=== PATIENT | male | born 1960 | race Two or more races ===

== ENCOUNTER 2023-04-22 14:57 | Inpatient (IN) | payer OTHER ==
[~2023-04-22] VITALS: Ht 180.3 cm; Wt 87.2 kg
[2023-04-22 16:41] LABS: Basophils # (auto) 0 10 ^3/uL (0-0.2); Basophils % (auto) 0.5 % (0.0-2.0); Eosinophils # (auto) 0.1 10 ^3/uL (0-0.8); Eosinophils % (auto) 1.4 % (0.0-7.0); Hematocrit 40.7 % (41.0-53.0); Hemoglobin 13.3 g/dL (13.5-17.5); Lymphocytes # (auto) 2.8 10 ^3/uL (0.4-5.4); Lymphocytes % (auto) 29.2 % (10.0-50.0); Mean Corpuscular Hemoglobin 28.7 pg (28.0-32.0); Mean Corpuscular Hgb Conc. 32.6 g/dL (32.0-36.0); Monocytes # (auto) 0.6 10 ^3/uL (0-1.3); Monocytes % (auto) 6.2 % (0.0-12.0); Neutrophils % (auto) 62.7 % (37.0-80.0); Nucleated Red Blood Cells % 0.1 %; Red Blood Cells 4.62 10^6/uL (4.5-5.90); Red Cell Distribution Width 14.5 % (11.8-14.3); White Blood Cell 9.6 10^3/uL (4.4-10.8)
[2023-04-22 17:02] LABS: Albumin 4.1 g/dL (3.2-4.8); Alkaline Phosphatase 93 U/L (46-116); Anion Gap 8 (5-15); Aspartate Aminotransferase 10 U/L (13-40); Bilirubin, Total 0.7 mg/dL (0.2-1.0); Blood Urea Nitrogen 10 mg/dL (9-23); Calcium 9.1 mg/dL (8.7-10.4); Carbon Dioxide 24 mmol/L (20-30); Chloride 109 mmol/L (98-107); Glucose 98 mg/dL (74-106); Lipase 34 U/L (12-53); Sodium 141 mmol/L (136-145)
[2023-04-22 17:22] LABS: Alanine Aminotransferase 9 U/L (7-40)
[2023-04-22 17:24] LABS: Potassium 2.7 mmol/L (3.5-5.1)
[2023-04-22] MEDS ORDERED: POTASSIUM CHL 20MEQ/100ML 100 ML IV ONE (18:15)
[2023-04-22] MEDS ORDERED: POTASSIUM CHL 20 Meq TABLET PO ONE (18:15)
[2023-04-22 18:52] VITALS: PULSE 82; RESP 21; O2SAT 92
[2023-04-22 20:00] VITALS: PULSE 83; RESP 16; O2SAT 98
[2023-04-22] MEDS ORDERED: SODIUM CHLORIDE 0.9% 1,000 ML IV ONE (23:45)
[2023-04-23] MEDS ORDERED: ONDANSETRON HCL 4 MG/2 ML VIAL IV PRN (01:00)
[2023-04-23] MEDS ORDERED: MORPHINE SULFATE INJ 2 MG/ml SYRG IV PRN (01:00)
[2023-04-23 07:50] VITALS: PULSE 85; RESP 17; O2SAT 96
[2023-04-23 13:18] LABS: Basophils # (auto) 0.1 10 ^3/uL (0-0.2); Basophils % (auto) 1.1 % (0.0-2.0); Eosinophils # (auto) 0.1 10 ^3/uL (0-0.8); Eosinophils % (auto) 1.2 % (0.0-7.0); Hematocrit 42.2 % (41.0-53.0); Hemoglobin 13.8 g/dL (13.5-17.5); Lymphocytes % (auto) 18.8 % (10.0-50.0); Mean Corpuscular Hemoglobin 28.7 pg (28.0-32.0); Mean Corpuscular Hgb Conc. 32.7 g/dL (32.0-36.0); Mean Corpuscular Volume 87.6 fL (80.0-100.0); Monocytes # (auto) 0.6 10 ^3/uL (0-1.3); Monocytes % (auto) 6.1 % (0.0-12.0); Neutrophils # (auto) 7.7 10 ^3/uL (1.6-8.6); Neutrophils % (auto) 72.8 % (37.0-80.0); Red Blood Cells 4.82 10^6/uL (4.5-5.90); Red Cell Distribution Width 14.5 % (11.8-14.3); White Blood Cell 10.5 10^3/uL (4.4-10.8)
[2023-04-23 13:27] LABS: Alanine Aminotransferase 10 U/L (7-40); Alkaline Phosphatase 94 U/L (46-116); Anion Gap 11 (5-15); Blood Urea Nitrogen 8 mg/dL (9-23); Calcium 9.3 mg/dL (8.7-10.4); Carbon Dioxide 21 mmol/L (20-30); Chloride 109 mmol/L (98-107); Glucose 103 mg/dL (74-106); Lipase 35 U/L (12-53); Magnesium 1.3 mg/dL (1.6-2.6); Sodium 141 mmol/L (136-145)
[2023-04-23 13:29] LABS: Albumin 4.1 g/dL (3.2-4.8); Aspartate Aminotransferase 10 U/L (13-40); Bilirubin, Total 0.7 mg/dL (0.2-1.0)
[2023-04-23 13:41] LABS: INR 1.13 (0.9-1.15); Partial Thromboplastin Time 34.2 SEC (24.5-34.5); Prothrombin Time 11.8 sec (9.3-11.8)
[2023-04-23 13:48] LABS: Potassium 2.8 mmol/L (3.5-5.1)
[2023-04-23] MEDS: POTASSIUM CHL 20MEQ/100ML 100 ML IV SCH ×2 (16:52→16:53)
[2023-04-23 19:30] VITALS: PULSE 85; RESP 21; O2SAT 98
[2023-04-23 21:11] VITALS: PULSE 79; RESP 18; TEMP 37.3; O2SAT 95
[2023-04-23] MEDS ORDERED: ASPI81CH59 PO (21:39)
[2023-04-23] MEDS ORDERED: DRON2.5C14 PO (21:49)
[2023-04-23] MEDS ORDERED: ASCO500T11 PO (21:49)
[2023-04-23] MEDS ORDERED: METF-370 PO (21:49)
[2023-04-23] MEDS ORDERED: CLOP75TA70 PO (21:49)
[2023-04-23] MEDS ORDERED: LEVE500T40 PO (21:49)
[2023-04-23] MEDS ORDERED: ATOR20TA50 PO (21:49)
[2023-04-23] MEDS ORDERED: SUCR1TAB22 OR (21:49)
[2023-04-23] MEDS ORDERED: PANT40TA2 PO (21:49)
[2023-04-23] MEDS ORDERED: MIRT-94 OR (21:49)
[2023-04-23] MEDS ORDERED: LACTCAP20 OR (21:49)
[2023-04-23] MEDS ORDERED: MULT-1018 OR (21:49)
[2023-04-23] MEDS: SODIUM CHLORIDE 0.9% 1,000 ML IV SCH (22:30)
[2023-04-24 05:00] VITALS: BP 144/80; PULSE 74; RESP 17; TEMP 97.9; O2SAT 98
[2023-04-24 06:32] LABS: Alanine Aminotransferase 11 U/L (7-40); Albumin 3.9 g/dL (3.2-4.8); Alkaline Phosphatase 89 U/L (46-116); Anion Gap 11 (5-15); Aspartate Aminotransferase 12 U/L (13-40); BUN/Creatinine Ratio 20.4 (10.0-20.0); Basophils # (auto) 0 10 ^3/uL (0-0.2); Basophils % (auto) 0.4 % (0.0-2.0); Bilirubin, Total 0.8 mg/dL (0.2-1.0); Blood Urea Nitrogen 10 mg/dL (9-23); Calcium 9.1 mg/dL (8.7-10.4); Carbon Dioxide 22 mmol/L (20-30); Chloride 109 mmol/L (98-107); Eosinophils # (auto) 0.2 10 ^3/uL (0-0.8); Eosinophils % (auto) 2.1 % (0.0-7.0); Glucose 98 mg/dL (74-106); Hematocrit 40.6 % (41.0-53.0); Hemoglobin 13.8 g/dL (13.5-17.5); Lymphocytes # (auto) 1.8 10 ^3/uL (0.4-5.4); Lymphocytes % (auto) 20.7 % (10.0-50.0); Magnesium 1.3 mg/dL (1.6-2.6); Mean Corpuscular Hemoglobin 29.7 pg (28.0-32.0); Mean Corpuscular Hgb Conc. 33.9 g/dL (32.0-36.0); Mean Corpuscular Volume 87.7 fL (80.0-100.0); Monocytes # (auto) 0.6 10 ^3/uL (0-1.3); Monocytes % (auto) 6.5 % (0.0-12.0); Neutrophils # (auto) 6.1 10 ^3/uL (1.6-8.6); Neutrophils % (auto) 70.3 % (37.0-80.0); Red Blood Cells 4.63 10^6/uL (4.5-5.90); Sodium 142 mmol/L (136-145); Total Protein 6.6 g/dL (5.7-8.2); White Blood Cell 8.6 10^3/uL (4.4-10.8)
[2023-04-24 06:35] LABS: Potassium 2.8 mmol/L (3.5-5.1)
[2023-04-24] MEDS: POTASSIUM CHL 20MEQ/100ML 100 ML IV SCH ×4 (07:45→18:06)
[2023-04-24 09:00] VITALS: BP 154/90; PULSE 77; RESP 17; TEMP 97.1; O2SAT 97
[2023-04-24] MEDS: SODIUM CHLORIDE 0.9% 1,000 ML IV SCH ×2 (09:50→23:10)
[2023-04-24] MEDS: PANTOPRAZOLE 40 MG/10 ML VIAL INJ IV SCH (10:00)
[2023-04-24] MEDS: MAGNESIUM SULFATE 1GM/100ML 100 ML IV SCH ×2 (11:49→13:15)
[2023-04-24 13:00] VITALS: BP 153/79; PULSE 53; RESP 20; TEMP 98.4; O2SAT 97
[2023-04-24 17:00] VITALS: BP 168/82; PULSE 75; RESP 22; TEMP 98.2; O2SAT 98
[2023-04-24 20:00] VITALS: PULSE 80; RESP 18
[2023-04-24] MEDS ORDERED: DEXTROSE (50%) 50ML SYRG IV PRN (20:00)
[2023-04-24] MEDS: ACCU-CHEK COMFORT CURVE STRIP VI SCH (22:00)
[2023-04-24] MEDS: InsuLIN REG 1unit/0.01ml Soln (100units/ml) SC SCH (22:00)
[2023-04-24 23:52] VITALS: BP 155/81; PULSE 74; RESP 18; TEMP 97.8; O2SAT 95
[2023-04-25] VITALS (7 sets, daily range): BP systolic 141–159; BP diastolic 70–92; PULSE 64–93; RESP 14–18; TEMP 97.5–98.5; O2SAT 92–97
[2023-04-25] MEDS: ACCU-CHEK COMFORT CURVE STRIP VI SCH ×4 (06:22→21:11)
[2023-04-25] MEDS: InsuLIN REG 1unit/0.01ml Soln (100units/ml) SC SCH ×4 (06:22→21:11)
[2023-04-25] MEDS: PANTOPRAZOLE 40 MG/10 ML VIAL INJ IV SCH (09:56)
[2023-04-25 12:23] LABS: Basophils # (auto) 0 10 ^3/uL (0-0.2); Basophils % (auto) 0.3 % (0.0-2.0); Eosinophils # (auto) 0.2 10 ^3/uL (0-0.8); Eosinophils % (auto) 2.5 % (0.0-7.0); Hematocrit 38.4 % (41.0-53.0); Hemoglobin 12.6 g/dL (13.5-17.5); Lymphocytes % (auto) 25.8 % (10.0-50.0); Mean Corpuscular Hemoglobin 28.9 pg (28.0-32.0); Mean Corpuscular Hgb Conc. 32.8 g/dL (32.0-36.0); Mean Corpuscular Volume 88.1 fL (80.0-100.0); Monocytes # (auto) 0.5 10 ^3/uL (0-1.3); Monocytes % (auto) 6.3 % (0.0-12.0); Neutrophils # (auto) 5.1 10 ^3/uL (1.6-8.6); Neutrophils % (auto) 65.1 % (37.0-80.0); Nucleated Red Blood Cells % 0.1 %; Red Blood Cells 4.35 10^6/uL (4.5-5.90); Red Cell Distribution Width 14.2 % (11.8-14.3); White Blood Cell 7.9 10^3/uL (4.4-10.8)
[2023-04-25] MEDS: SODIUM CHLORIDE 0.9% 1,000 ML IV SCH (12:30)
[2023-04-25 12:34] LABS: Chloride 108 mmol/L (98-107); Potassium 3.1 mmol/L (3.5-5.1); Sodium 141 mmol/L (136-145)
[2023-04-25 12:35] LABS: Anion Gap 12 (5-15); Calcium 8.8 mg/dL (8.7-10.4); Carbon Dioxide 21 mmol/L (20-30)
[2023-04-25 12:40] LABS: BUN/Creatinine Ratio 12.5 (10.0-20.0); Blood Urea Nitrogen 6 mg/dL (9-23); Glucose 122 mg/dL (74-106)
[2023-04-25 12:41] LABS: Magnesium 1.5 mg/dL (1.6-2.6)
[2023-04-25] MEDS ORDERED: POTASSIUM CHL 20MEQ/100ML 100 ML IV ONE (15:45)
[2023-04-25] MEDS ORDERED: MAGNESIUM SULFATE 1GM/100ML 100 ML IV ONE (15:45)
[2023-04-25] MEDS ORDERED: GOLYTELY 4L KIT PO ONE (19:15)
[2023-04-25] MEDS: POTASSIUM CHL 20MEQ/100ML 100 ML IV SCH (20:01)
[2023-04-26] VITALS (7 sets, daily range): BP systolic 142–161; BP diastolic 88–92; PULSE 69–92; RESP 16–18; TEMP 97.9–98.3; O2SAT 92–95
[2023-04-26] MEDS: POTASSIUM CHL 20MEQ/100ML 100 ML IV SCH ×3 (00:53→14:48)
[2023-04-26] MEDS: SODIUM CHLORIDE 0.9% 1,000 ML IV SCH ×2 (01:50→17:00)
[2023-04-26] MEDS ORDERED: BISACODYL 5 MG EC TAB PO ONE (06:00)
[2023-04-26 06:18] LABS: Basophils # (auto) 0 10 ^3/uL (0-0.2); Basophils % (auto) 0.6 % (0.0-2.0); Eosinophils # (auto) 0.2 10 ^3/uL (0-0.8); Eosinophils % (auto) 2.6 % (0.0-7.0); Hemoglobin 12.8 g/dL (13.5-17.5); Lymphocytes # (auto) 1.6 10 ^3/uL (0.4-5.4); Lymphocytes % (auto) 24.3 % (10.0-50.0); Mean Corpuscular Hemoglobin 29.1 pg (28.0-32.0); Mean Corpuscular Hgb Conc. 33.7 g/dL (32.0-36.0); Mean Corpuscular Volume 86.3 fL (80.0-100.0); Monocytes # (auto) 0.4 10 ^3/uL (0-1.3); Monocytes % (auto) 6.2 % (0.0-12.0); Neutrophils # (auto) 4.4 10 ^3/uL (1.6-8.6); Neutrophils % (auto) 66.3 % (37.0-80.0); Red Cell Distribution Width 14.4 % (11.8-14.3); White Blood Cell 6.7 10^3/uL (4.4-10.8)
[2023-04-26] MEDS: ACCU-CHEK COMFORT CURVE STRIP VI SCH ×4 (06:55→22:00)
[2023-04-26] MEDS: InsuLIN REG 1unit/0.01ml Soln (100units/ml) SC SCH ×4 (06:55→22:00)
[2023-04-26 07:02] LABS: INR 1.15 (0.9-1.15)
[2023-04-26 07:21] LABS: Alanine Aminotransferase 15 U/L (7-40); Alkaline Phosphatase 84 U/L (46-116); Anion Gap 11 (5-15); Aspartate Aminotransferase 18 U/L (13-40); Carbon Dioxide 22 mmol/L (20-30); Chloride 108 mmol/L (98-107); Glucose 110 mg/dL (74-106); Potassium 3.2 mmol/L (3.5-5.1); Sodium 141 mmol/L (136-145)
[2023-04-26 07:22] LABS: Albumin 3.7 g/dL (3.2-4.8); Bilirubin, Total 0.7 mg/dL (0.2-1.0); Total Protein 6.3 g/dL (5.7-8.2)
[2023-04-26 07:25] LABS: BUN/Creatinine Ratio 11.6 (10.0-20.0); Blood Urea Nitrogen < 5 mg/dL (9-23)
[2023-04-26] MEDS: hydrALAZINE HCL 20 MG/ML VL IV PRN ×2 (10:11→17:06)
[2023-04-26] MEDS: PANTOPRAZOLE 40 MG/10 ML VIAL INJ IV SCH (10:11)
[2023-04-26] MEDS: MAGNESIUM SULFATE 1GM/100ML 100 ML IV SCH ×2 (19:51→23:00)
[2023-04-27] MEDS: SODIUM CHLORIDE 0.9% 1,000 ML IV SCH (04:49)
[2023-04-27 05:00] VITALS: BP 151/90; PULSE 76; RESP 18; TEMP 97.9; O2SAT 93
[2023-04-27] MEDS: InsuLIN REG 1unit/0.01ml Soln (100units/ml) SC SCH (05:56)
[2023-04-27] MEDS: ACCU-CHEK COMFORT CURVE STRIP VI SCH (05:56)
[2023-04-27 08:00] VITALS: PULSE 71; PULSE 83; RESP 16; O2SAT 96
[2023-04-27 10:07] VITALS: BP 138/90; PULSE 83; RESP 16; TEMP 98.1; O2SAT 100
[2023-04-27] MEDS ORDERED: POLYETHYLENE GLYCOL 17 GM PWDR PO ONE (10:30)
[2023-04-27] MEDS: PANTOPRAZOLE 40 MG/10 ML VIAL INJ IV SCH (10:57)
[2023-04-27 14:22] VITALS: BP 161/99; PULSE 77; RESP 16; TEMP 98.2; O2SAT 96
[2023-04-27 14:41] LABS: Basophils # (auto) 0 10 ^3/uL (0-0.2); Basophils % (auto) 0.5 % (0.0-2.0); Eosinophils # (auto) 0.2 10 ^3/uL (0-0.8); Eosinophils % (auto) 3.4 % (0.0-7.0); Hematocrit 37.3 % (41.0-53.0); Hemoglobin 12.4 g/dL (13.5-17.5); Lymphocytes # (auto) 2.1 10 ^3/uL (0.4-5.4); Lymphocytes % (auto) 30.2 % (10.0-50.0); Mean Corpuscular Hemoglobin 28.7 pg (28.0-32.0); Mean Corpuscular Hgb Conc. 33.3 g/dL (32.0-36.0); Mean Corpuscular Volume 86.3 fL (80.0-100.0); Monocytes # (auto) 0.6 10 ^3/uL (0-1.3); Monocytes % (auto) 8.3 % (0.0-12.0); Neutrophils # (auto) 3.9 10 ^3/uL (1.6-8.6); Neutrophils % (auto) 57.6 % (37.0-80.0); Red Blood Cells 4.33 10^6/uL (4.5-5.90); Red Cell Distribution Width 14.4 % (11.8-14.3); White Blood Cell 6.8 10^3/uL (4.4-10.8)
[2023-04-27 14:54] LABS: Anion Gap 9 (5-15); Calcium 8.6 mg/dL (8.7-10.4); Carbon Dioxide 22 mmol/L (20-30); Chloride 109 mmol/L (98-107); Sodium 140 mmol/L (136-145)
[2023-04-27 14:57] LABS: Glucose 203 mg/dL (74-106)
[2023-04-27 14:58] LABS: Magnesium 1.7 mg/dL (1.6-2.6)
[2023-04-27 15:03] LABS: BUN/Creatinine Ratio 9.8 (10.0-20.0); Blood Urea Nitrogen < 5 mg/dL (9-23)
[2023-04-27] MEDS ORDERED: MAGNESIUM SULFATE 1GM/100ML 100 ML IV ONE (16:00)
[2023-04-27] MEDS ORDERED: LISINOPRIL 5 MG TAB PO ONE (16:15)
[2023-04-27] MEDS: POTASSIUM CHL 20MEQ/100ML 100 ML IV SCH ×2 (16:47→20:33)
[2023-04-27] MEDS: hydrALAZINE HCL 20 MG/ML VL IV PRN (16:47)
[2023-04-27 19:30] VITALS: PULSE 69
[2023-04-27 23:02] VITALS: BP 132/71; PULSE 74; RESP 18; TEMP 98.8; O2SAT 93
[2023-04-28] VITALS (7 sets, daily range): BP systolic 144–149; BP diastolic 67–80; PULSE 49–77; RESP 16–20; TEMP 97.4–98.3; O2SAT 93–98
[2023-04-28] MEDS ORDERED: POLYETHYLENE GLYCOL 17 GM PWDR PO ONE (05:30)
[2023-04-28] MEDS ORDERED: LIDOCAINE VISCOUS 2% 15ML UD ONE (09:48)
[2023-04-28 09:58] LABS: Basophils # (auto) 0 10 ^3/uL (0-0.2); Basophils % (auto) 0.7 % (0.0-2.0); Eosinophils # (auto) 0.2 10 ^3/uL (0-0.8); Eosinophils % (auto) 3.7 % (0.0-7.0); Hemoglobin 12.7 g/dL (13.5-17.5); Lymphocytes # (auto) 2.1 10 ^3/uL (0.4-5.4); Lymphocytes % (auto) 31.3 % (10.0-50.0); Mean Corpuscular Hgb Conc. 33.3 g/dL (32.0-36.0); Mean Corpuscular Volume 86.9 fL (80.0-100.0); Monocytes # (auto) 0.6 10 ^3/uL (0-1.3); Monocytes % (auto) 9.2 % (0.0-12.0); Neutrophils # (auto) 3.7 10 ^3/uL (1.6-8.6); Neutrophils % (auto) 55.1 % (37.0-80.0); Nucleated Red Blood Cells % 0.1 %; Red Blood Cells 4.37 10^6/uL (4.5-5.90); Red Cell Distribution Width 14.6 % (11.8-14.3); White Blood Cell 6.7 10^3/uL (4.4-10.8)
[2023-04-28] MEDS: PANTOPRAZOLE 40 MG/10 ML VIAL INJ IV SCH (10:00)
[2023-04-28] MEDS: LISINOPRIL 5 MG TAB PO SCH (10:00)
[2023-04-28 10:11] LABS: Anion Gap 8 (5-15); Carbon Dioxide 23 mmol/L (20-30); Chloride 111 mmol/L (98-107); Potassium 3.1 mmol/L (3.5-5.1); Sodium 142 mmol/L (136-145)
[2023-04-28 10:12] LABS: Calcium 8.9 mg/dL (8.5-10.1)
[2023-04-28 10:17] LABS: Glucose 117 mg/dL (74-106)
[2023-04-28 10:26] LABS: BUN/Creatinine Ratio 12.2 (10.0-20.0); Blood Urea Nitrogen < 5 mg/dL (9-23)
[2023-04-28 10:37] LABS: Magnesium 1.6 mg/dL (1.6-2.6)
[2023-04-28] MEDS: fentaNYL CITRATE 100 MCG/2 ML VL ONE ×3 (11:25→11:40)
[2023-04-28] MEDS: MIDAZOLAM HCL 2MG/2ML 2ml VIAL (1mg/ml) ONE ×3 (11:25→11:41)
[2023-04-28] MEDS: diphenhdrAMINE HCL 50 MG/1 ML VL ONE ×2 (11:25→11:37)
[2023-04-28] MEDS: MAGNESIUM SULFATE 1GM/100ML 100 ML IV SCH ×2 (13:28→16:21)
[2023-04-28] MEDS: POTASSIUM CHL 20MEQ/100ML 100 ML IV SCH ×2 (13:30→16:20)
[2023-04-28] MEDS: DOCUSATE SOD 100 MG CAP PO SCH (22:15)
[2023-04-29] VITALS (7 sets, daily range): BP systolic 140–155; BP diastolic 71–82; PULSE 67–73; RESP 14–18; TEMP 97.3–98.6; O2SAT 93–96
[2023-04-29 06:55] LABS: Anion Gap 7 (5-15); Carbon Dioxide 24 mmol/L (20-30); Chloride 109 mmol/L (98-107); Potassium 3.9 mmol/L (3.5-5.1); Sodium 140 mmol/L (136-145)
[2023-04-29 07:01] LABS: Glucose 130 mg/dL (74-106)
[2023-04-29 07:02] LABS: Magnesium 1.7 mg/dL (1.6-2.6)
[2023-04-29 07:04] LABS: BUN/Creatinine Ratio 10.4 (10.0-20.0); Blood Urea Nitrogen < 5 mg/dL (9-23)
[2023-04-29] MEDS ORDERED: PANTOPRAZOLE 40 MG TAB PO SCH (10:00)
[2023-04-29] MEDS: DOCUSATE SOD 100 MG CAP PO SCH ×2 (10:13→22:00)
[2023-04-29] MEDS: LISINOPRIL 5 MG TAB PO SCH (10:14)
[2023-04-29] MEDS ORDERED: PANT40TA2 PO (10:15)
[2023-04-29] MEDS ORDERED: LISI-275 PO (10:15)
[2023-04-30 05:00] VITALS: BP 122/75; PULSE 75; RESP 18; TEMP 98; O2SAT 94
[2023-04-30 07:50] VITALS: BP 140/79
[2023-04-30 08:00] VITALS: PULSE 72; RESP 18; O2SAT 96
== END 2023-04-30 09:10 | disposition home or self-care (01) | DRG 247 ==
LOC: EDBD 14:57 → ER 14:57 → OVERFLOW 04-23 00:57 → EAST 04-23 21:02 → TELE-EAST 04-25 10:22 → EAST 04-25 17:33 → TELE-EAST 04-25 18:08
PROVIDERS: ADMIT Internal Medicine Pulmonary Disease; ATTEND Student in an Organized Health Care Education/Training Program
PROC: 0DB68ZX Excision of Stomach, Via Natural or Artificial Opening Endoscopic, Diagnostic (ICD-10-PCS; principal; 2023-04-28 11:15)
PROC: 0DJD8ZZ Inspection of Lower Intestinal Tract, Via Natural or Artificial Opening Endoscopic (ICD-10-PCS; 2023-04-28 11:15)
DX: K56.609 Unspecified intestinal obstruction, unspecified as to partial versus complete obstruction (principal); K59.39 Other megacolon; E11.9 Type 2 diabetes mellitus without complications; E87.6 Hypokalemia; K80.20 Calculus of gallbladder without cholecystitis without obstruction; N21.0 Calculus in bladder; I10 Essential (primary) hypertension; K44.9 Diaphragmatic hernia without obstruction or gangrene; E83.42 Hypomagnesemia; Z88.0 Allergy status to penicillin; Z86.73 Personal history of transient ischemic attack (TIA), and cerebral infarction without residual deficits; Z82.49 Family history of ischemic heart disease and other diseases of the circulatory system; Z82.0 Family history of epilepsy and other diseases of the nervous system; Q43.8 Other specified congenital malformations of intestine
CPT/HCPCS: 36415; 43239; 45378; 74176; 80048; 80053; 82962; 83036; 83605; 83690; 83735; 84443; 85025; 85610; 85730; 86850; 86900; 86901; 93005; 97163; C9113; G0378; J1815; J2250; J3480

== ENCOUNTER 2023-05-26 17:28 | Emergency (ER) | payer MEDICAID, OTHER ==
[~2023-05-26] VITALS: Ht 182.9 cm; Wt 90.0 kg
[~2023-05-26 17:28] MED LIST: ASCO500T11 PO; ASPI81CH59 PO; ATOR20TA50 PO; CLOP75TA70 PO; DRON2.5C14 PO; LACTCAP20 OR; LEVE500T40 PO; LISI-275 PO; METF-370 PO; MIRT-94 OR; MULT-1018 OR; PANT40TA2 PO; SUCR1TAB22 OR
[2023-05-26 18:40] LABS: Basophils # (auto) 0 10 ^3/uL (0-0.2); Basophils % (auto) 0.6 % (0.0-2.0); Eosinophils # (auto) 0.3 10 ^3/uL (0-0.8); Eosinophils % (auto) 4.6 % (0.0-7.0); Hematocrit 37.9 % (41.0-53.0); Hemoglobin 12.4 g/dL (13.5-17.5); Lymphocytes # (auto) 2.5 10 ^3/uL (0.4-5.4); Lymphocytes % (auto) 34.8 % (10.0-50.0); Mean Corpuscular Hemoglobin 28.2 pg (28.0-32.0); Mean Corpuscular Hgb Conc. 32.8 g/dL (32.0-36.0); Mean Corpuscular Volume 86.1 fL (80.0-100.0); Monocytes # (auto) 0.4 10 ^3/uL (0-1.3); Monocytes % (auto) 4.9 % (0.0-12.0); Neutrophils % (auto) 55.1 % (37.0-80.0); Red Cell Distribution Width 14.9 % (11.8-14.3); White Blood Cell 7.3 10^3/uL (4.4-10.8)
[2023-05-26 19:02] LABS: Alanine Aminotransferase 11 U/L (7-40); Alkaline Phosphatase 91 U/L (46-116); Anion Gap 5 (5-15); Aspartate Aminotransferase 9 U/L (13-40); BUN/Creatinine Ratio 30.2 (10.0-20.0); Blood Urea Nitrogen 13 mg/dL (9-23); Calcium 8.7 mg/dL (8.7-10.4); Carbon Dioxide 29 mmol/L (20-30); Chloride 107 mmol/L (98-107); Glucose 152 mg/dL (74-106); Potassium 3.2 mmol/L (3.5-5.1); Sodium 141 mmol/L (136-145)
[2023-05-26 19:03] LABS: Albumin 3.8 g/dL (3.2-4.8); Bilirubin, Total 0.3 mg/dL (0.2-1.0); Total Protein 6.4 g/dL (5.7-8.2)
[2023-05-26] MEDS ORDERED: SODIUM CHLORIDE 0.9% 1,000 ML IV ONE (19:30)
[2023-05-26] MEDS ORDERED: levETIRAcetam 1000 mg/100ml 100 ML IV ONE (19:30)
[2023-05-26] MEDS ORDERED: POTASSIUM EFFERVESENT TAB 25 MEQ PO ONE (23:45)
[2023-05-27] MEDS: POTASSIUM CHL 20MEQ/100ML 100 ML IV SCH (03:14)
[2023-05-27 07:50] VITALS: PULSE 68; RESP 19; TEMP 98.3; O2SAT 95
[2023-05-27 09:12] VITALS: BP 121/60; PULSE 71; RESP 12; O2SAT 95
== END 2023-05-27 09:13 | disposition home or self-care (01) ==
LOC: ER 17:28 → EDBD 17:28 → ER 05-27 09:13
DX: R56.9 Unspecified convulsions (principal); E87.6 Hypokalemia; R41.82 Altered mental status, unspecified; Z86.73 Personal history of transient ischemic attack (TIA), and cerebral infarction without residual deficits
CPT/HCPCS: 36415; 70450; 71045; 80053; 83690; 83880; 84484; 85025; 93005; 96365; 99285; J1953

== ENCOUNTER 2023-12-31 12:51 | Inpatient (IN) | payer MEDICAID ==
[~2023-12-31] VITALS: Ht 182.9 cm; Wt 105.8 kg
[~2023-12-31 12:51] MED LIST changes: -SUCR1TAB22 OR; +SUCR1TAB31 OR
[2023-12-31 14:21] LABS: Basophils # (auto) 0.1 10 ^3/uL (0-0.2); Basophils % (auto) 0.6 % (0.0-2.0); Eosinophils # (auto) 0.1 10 ^3/uL (0-0.8); Eosinophils % (auto) 0.5 % (0.0-7.0); Hematocrit 38.7 % (41.0-53.0); Hemoglobin 12.8 g/dL (13.5-17.5); Lymphocytes # (auto) 2.2 10 ^3/uL (0.4-5.4); Lymphocytes % (auto) 20.8 % (10.0-50.0); Mean Corpuscular Hemoglobin 27.6 pg (28.0-32.0); Mean Corpuscular Hgb Conc. 33.2 g/dL (32.0-36.0); Mean Corpuscular Volume 83.3 fL (80.0-100.0); Monocytes # (auto) 0.8 10 ^3/uL (0-1.3); Monocytes % (auto) 7.7 % (0.0-12.0); Neutrophils # (auto) 7.4 10 ^3/uL (1.6-8.6); Neutrophils % (auto) 70.4 % (37.0-80.0); Nucleated Red Blood Cells % 0.1 %; Red Blood Cells 4.64 10^6/uL (4.5-5.90); Red Cell Distribution Width 15.4 % (11.8-14.3); White Blood Cell 10.5 10^3/uL (4.4-10.8)
[2023-12-31 14:36] VITALS: PULSE 84; RESP 19; O2SAT 91
[2023-12-31] MEDS ORDERED: AMLO1TAB22 PO (14:54)
[2023-12-31] MEDS ORDERED: ASPI-543 PO (14:54)
[2023-12-31] MEDS ORDERED: KEP500T PO (14:54)
[2023-12-31] MEDS ORDERED: MULT-1018 PO (14:54)
[2023-12-31] MEDS ORDERED: SUCR1TAB PO (14:54)
[2023-12-31 15:19] LABS: Albumin 3.6 g/dL (3.2-4.8); Alkaline Phosphatase 94 U/L (46-116); Anion Gap 12 (5-15); Aspartate Aminotransferase < 8 U/L (13-40); BUN/Creatinine Ratio 16.3 (10.0-20.0); Bilirubin, Total 0.8 mg/dL (0.2-1.0); Blood Urea Nitrogen 7 mg/dL (9-23); Calcium 9.4 mg/dL (8.7-10.4); Carbon Dioxide 23 mmol/L (20-30); Chloride 108 mmol/L (98-107); Glucose 125 mg/dL (74-106); Lipase 22 U/L (12-53); Sodium 143 mmol/L (136-145); Total Protein 6.6 g/dL (5.7-8.2)
[2023-12-31 15:25] LABS: Alanine Aminotransferase 9 U/L (7-40)
[2023-12-31 15:27] LABS: Potassium 2.2 mmol/L (3.5-5.1)
[2023-12-31] MEDS: metroNIDAZOLE 500MG/100ML 100 ML IV ONE (16:12)
[2023-12-31] MEDS ORDERED: IPRATROPIUM BROM 0.5 MG/2.5ML INH SOL NEB PRN (16:30)
[2023-12-31] MEDS ORDERED: NITROGLYCERIN 0.4 MG SL TAB SL PRN (16:30)
[2023-12-31] MEDS ORDERED: MORPHINE SULFATE INJ 2 MG/ml SYRG IV PRN (16:30)
[2023-12-31] MEDS ORDERED: DEXTROSE (50%) 50ML SYRG IV PRN (16:45)
[2023-12-31] MEDS: POTASSIUM CHLORIDE 60 MEQ, LIDOCAINE 1% (LOCAL ANESTH.) 6 ML in SODIUM CHL 0.9% 500 ML IV ONE (17:40)
[2023-12-31] MEDS: InsuLIN REG 1unit/0.01ml Soln (100units/ml) SC SCH (18:00)
[2023-12-31 18:08] VITALS: O2SAT 92
[2023-12-31] MEDS: ACCU-CHEK COMFORT CURVE STRIP VI SCH (18:18)
[2023-12-31 19:01] VITALS: BP 137/79; PULSE 83; RESP 18; TEMP 98.2; O2SAT 92
[2023-12-31 21:00] VITALS: BP 143/84; PULSE 84; RESP 18; TEMP 97.8; O2SAT 88
[2023-12-31] MEDS: metroNIDAZOLE 500MG/100ML 100 ML IV SCH (22:00)
[2023-12-31 22:26] VITALS: BP 143/84; PULSE 84; RESP 18; TEMP 97.8; O2SAT 98
[2024-01-01] VITALS (8 sets, daily range): BP systolic 137–157; BP diastolic 34–86; PULSE 82–85; RESP 16–18; TEMP 98.1–98.8; O2SAT 90–94
[2024-01-01] MEDS: SOD CHL 0.9%/ KCL 40MEQ 1,000 ML IV ONE (01:30)
[2024-01-01 09:38] LABS: Chloride 111 mmol/L (98-107); Sodium 144 mmol/L (136-145)
[2024-01-01 09:41] LABS: Anion Gap 10 (5-15); Carbon Dioxide 23 mmol/L (20-30)
[2024-01-01 09:42] LABS: Calcium 9.3 mg/dL (8.5-10.1)
[2024-01-01 09:46] LABS: Glucose 133 mg/dL (74-106)
[2024-01-01 09:47] LABS: BUN/Creatinine Ratio 25.6 (10.0-20.0); Blood Urea Nitrogen 11 mg/dL (9-23); Magnesium 1.4 mg/dL (1.6-2.6)
[2024-01-01 09:59] LABS: Potassium 2.4 mmol/L (3.5-5.1)
[2024-01-01] MEDS: GASTROGRAFIN 120 ML SOL ONE (10:20)
[2024-01-01] MEDS: PANTOPRAZOLE 40 MG/10 ML VIAL INJ IV SCH (11:36)
[2024-01-01] MEDS: levoFLOXacin 500MG 100 ML IV SCH (11:36)
[2024-01-01] MEDS: ENOXAPARIN SOD 40 MG/0.4 ML SYRINGE SC SCH (11:37)
[2024-01-01] MEDS: MAGNESIUM SULFATE 1GM/100ML 100 ML IV SCH (14:27)
[2024-01-01] MEDS: POTASSIUM CHLORIDE 60 MEQ, LIDOCAINE 1% (LOCAL ANESTH.) 6 ML in SODIUM CHL 0.9% 500 ML IV ONE (14:27)
[2024-01-01] MEDS: MAGNESIUM SULFATE 1GM/100ML 100 ML IV ONE (18:14)
[2024-01-01] MEDS: SOD CHL 0.9%/ KCL 40MEQ 1,000 ML IV SCH (20:30)
[2024-01-02] VITALS (10 sets, daily range): BP systolic 135–153; BP diastolic 65–91; PULSE 42–85; RESP 17–20; TEMP 95–98.1; O2SAT 91–95
[2024-01-02] MEDS: metroNIDAZOLE 500MG/100ML 100 ML IV SCH (02:22)
[2024-01-02 11:22] LABS: Basophils # (auto) 0 10 ^3/uL (0-0.2); Basophils % (auto) 0.4 % (0.0-2.0); Eosinophils # (auto) 0.1 10 ^3/uL (0-0.8); Eosinophils % (auto) 1.2 % (0.0-7.0); Hematocrit 40.2 % (41.0-53.0); Hemoglobin 13.3 g/dL (13.5-17.5); Lymphocytes % (auto) 20.4 % (10.0-50.0); Mean Corpuscular Hemoglobin 28.3 pg (28.0-32.0); Mean Corpuscular Hgb Conc. 33.2 g/dL (32.0-36.0); Mean Corpuscular Volume 85.1 fL (80.0-100.0); Monocytes # (auto) 0.8 10 ^3/uL (0-1.3); Monocytes % (auto) 8.3 % (0.0-12.0); Neutrophils # (auto) 6.8 10 ^3/uL (1.6-8.6); Neutrophils % (auto) 69.7 % (37.0-80.0); Red Blood Cells 4.72 10^6/uL (4.5-5.90); White Blood Cell 9.7 10^3/uL (4.4-10.8)
[2024-01-02 11:27] LABS: Chloride 113 mmol/L (98-107); Potassium 2.9 mmol/L (3.5-5.1); Sodium 145 mmol/L (136-145)
[2024-01-02 11:28] LABS: Anion Gap 11 (5-15); Carbon Dioxide 21 mmol/L (20-30)
[2024-01-02 11:29] LABS: Calcium 9.4 mg/dL (8.7-10.4)
[2024-01-02 11:34] LABS: BUN/Creatinine Ratio 19.5 (10.0-20.0); Blood Urea Nitrogen 8 mg/dL (9-23); Glucose 113 mg/dL (74-106)
[2024-01-02] MEDS: ONDANSETRON HCL 4 MG/2 ML VIAL IV PRN (21:56)
[2024-01-02] MEDS: MORPHINE SULFATE INJ 2 MG/ml SYRG IV PRN (22:01)
[2024-01-03] VITALS (10 sets, daily range): BP systolic 133–154; BP diastolic 67–96; PULSE 74–104; RESP 17–19; TEMP 97.6–98.6; O2SAT 92–94
[2024-01-03 11:27] LABS: Basophils # (auto) 0 10 ^3/uL (0-0.2); Eosinophils # (auto) 0 10 ^3/uL (0-0.8); Eosinophils % (auto) 0.1 % (0.0-7.0); Hematocrit 34.7 % (41.0-53.0); Lymphocytes # (auto) 0.8 10 ^3/uL (0.4-5.4); Monocytes # (auto) 0.5 10 ^3/uL (0-1.3); Nucleated Red Blood Cells % 0.1 %; White Blood Cell 6.1 10^3/uL (4.4-10.8)
[2024-01-03 11:30] LABS: Basophils % (auto) 0.3 % (0.0-2.0); Hemoglobin 10.1 g/dL (13.5-17.5); Lymphocytes % (auto) 13.1 % (10.0-50.0); Mean Corpuscular Hemoglobin 28.4 pg (28.0-32.0); Mean Corpuscular Hgb Conc. 29.2 g/dL (32.0-36.0); Mean Corpuscular Volume 97.2 fL (80.0-100.0); Monocytes % (auto) 7.8 % (0.0-12.0); Neutrophils # (auto) 4.8 10 ^3/uL (1.6-8.6); Neutrophils % (auto) 78.7 % (37.0-80.0); Red Blood Cells 3.57 10^6/uL (4.5-5.90); Red Cell Distribution Width 17.3 % (11.8-14.3)
[2024-01-03 11:43] LABS: Bilirubin, Total 0.5 mg/dL (0.2-1.0); Total Protein 5.3 g/dL (5.7-8.2)
[2024-01-03] MEDS: BISACODYL 10 MG RECT SUPP PR ONE (14:41)
[2024-01-03 15:03] LABS: Basophils # (auto) 0 10 ^3/uL (0-0.2); Basophils % (auto) 0.2 % (0.0-2.0); Eosinophils # (auto) 0 10 ^3/uL (0-0.8); Eosinophils % (auto) 0.1 % (0.0-7.0); Hematocrit 41.8 % (41.0-53.0); Hemoglobin 13.3 g/dL (13.5-17.5); Lymphocytes # (auto) 1.2 10 ^3/uL (0.4-5.4); Lymphocytes % (auto) 13.7 % (10.0-50.0); Mean Corpuscular Hemoglobin 27.5 pg (28.0-32.0); Mean Corpuscular Hgb Conc. 31.9 g/dL (32.0-36.0); Mean Corpuscular Volume 86.3 fL (80.0-100.0); Monocytes # (auto) 0.8 10 ^3/uL (0-1.3); Monocytes % (auto) 9.1 % (0.0-12.0); Neutrophils # (auto) 6.5 10 ^3/uL (1.6-8.6); Neutrophils % (auto) 76.9 % (37.0-80.0); Nucleated Red Blood Cells % 0.1 %; Red Blood Cells 4.84 10^6/uL (4.5-5.90); Red Cell Distribution Width 15.9 % (11.8-14.3); White Blood Cell 8.4 10^3/uL (4.4-10.8)
[2024-01-03 15:11] LABS: Chloride 112 mmol/L (98-107); Potassium 2.8 mmol/L (3.5-5.1); Sodium 144 mmol/L (136-145)
[2024-01-03 15:14] LABS: Anion Gap 14 (5-15); Calcium 9.4 mg/dL (8.7-10.4); Carbon Dioxide 18 mmol/L (20-30)
[2024-01-03 15:19] LABS: BUN/Creatinine Ratio 22.4 (10.0-20.0); Blood Urea Nitrogen 11 mg/dL (9-23); Glucose 142 mg/dL (74-106)
[2024-01-03 15:20] LABS: Alkaline Phosphatase 81 U/L (46-116)
[2024-01-03 15:21] LABS: Alanine Aminotransferase 10 U/L (7-40); Albumin 3.6 g/dL (3.2-4.8); Aspartate Aminotransferase 10 U/L (13-40)
[2024-01-03] MEDS: levETIRAcetam 500 mg/100ml 100 ML IV SCH (17:35)
[2024-01-03] MEDS: ACETAMINOPHEN 325 MG TAB PO ONE (18:54)
[2024-01-04] VITALS (10 sets, daily range): BP systolic 130–156; BP diastolic 70–93; PULSE 72–82; RESP 16–20; TEMP 97.5–98.4; O2SAT 93–95
[2024-01-04] MEDS: POTASSIUM CHL 20MEQ/100ML 100 ML IV SCH (03:16)
[2024-01-04 10:07] LABS: Basophils # (auto) 0 10 ^3/uL (0-0.2); Basophils % (auto) 0.5 % (0.0-2.0); Eosinophils # (auto) 0.1 10 ^3/uL (0-0.8); Eosinophils % (auto) 1.3 % (0.0-7.0); Hematocrit 39.2 % (41.0-53.0); Hemoglobin 13.1 g/dL (13.5-17.5); Lymphocytes # (auto) 1.4 10 ^3/uL (0.4-5.4); Lymphocytes % (auto) 17.8 % (10.0-50.0); Mean Corpuscular Hgb Conc. 33.5 g/dL (32.0-36.0); Mean Corpuscular Volume 83.5 fL (80.0-100.0); Monocytes # (auto) 0.6 10 ^3/uL (0-1.3); Neutrophils # (auto) 5.6 10 ^3/uL (1.6-8.6); Neutrophils % (auto) 72.4 % (37.0-80.0); Nucleated Red Blood Cells % 0.1 %; Red Cell Distribution Width 16.1 % (11.8-14.3); White Blood Cell 7.7 10^3/uL (4.4-10.8)
[2024-01-04 10:32] LABS: Alanine Aminotransferase 11 U/L (7-40); Albumin 3.5 g/dL (3.2-4.8); Alkaline Phosphatase 76 U/L (46-116); Anion Gap 10 (5-15); Aspartate Aminotransferase 12 U/L (13-40); BUN/Creatinine Ratio 24.4 (10.0-20.0); Blood Urea Nitrogen 11 mg/dL (9-23); Calcium 9.1 mg/dL (8.7-10.4); Carbon Dioxide 22 mmol/L (20-30); Chloride 112 mmol/L (98-107); Glucose 124 mg/dL (74-106); Magnesium 1.4 mg/dL (1.6-2.6); Potassium 2.8 mmol/L (3.5-5.1); Sodium 144 mmol/L (136-145)
[2024-01-04 10:33] LABS: Bilirubin, Total 0.7 mg/dL (0.2-1.0); Total Protein 6.2 g/dL (5.7-8.2)
[2024-01-04] MEDS: MAGNESIUM SULFATE 1GM/100ML 100 ML IV SCH (14:16)
[2024-01-04] MEDS: POTASSIUM CHLORIDE 40 MEQ, LIDOCAINE 1% (LOCAL ANESTH.) 4 ML in SODIUM CHL 0.9% 250 ML IV ONE (15:32)
[2024-01-05] VITALS (12 sets, daily range): BP systolic 145–178; BP diastolic 78–99; PULSE 71–87; RESP 16–18; TEMP 97.2–98.3; O2SAT 94–99
[2024-01-05] MEDS: GASTROGRAFIN 120 ML SOL ONE (08:07)
[2024-01-05] MEDS: metroNIDAZOLE 500 MG TAB PO SCH (11:02)
[2024-01-05] MEDS: LABETALOL HCL 5 MG/ML ML 20ML VIAL IV PRN (16:41)
[2024-01-05 19:09] LABS: Basophils # (auto) 0.1 10 ^3/uL (0-0.2); Basophils % (auto) 0.8 % (0.0-2.0); Eosinophils # (auto) 0 10 ^3/uL (0-0.8); Eosinophils % (auto) 0.2 % (0.0-7.0); Hematocrit 40.8 % (41.0-53.0); Hemoglobin 13.7 g/dL (13.5-17.5); Lymphocytes % (auto) 9.5 % (10.0-50.0); Mean Corpuscular Hemoglobin 28.3 pg (28.0-32.0); Mean Corpuscular Hgb Conc. 33.5 g/dL (32.0-36.0); Mean Corpuscular Volume 84.4 fL (80.0-100.0); Monocytes # (auto) 0.5 10 ^3/uL (0-1.3); Monocytes % (auto) 5.1 % (0.0-12.0); Neutrophils # (auto) 8.9 10 ^3/uL (1.6-8.6); Neutrophils % (auto) 84.4 % (37.0-80.0); Red Blood Cells 4.83 10^6/uL (4.5-5.90); Red Cell Distribution Width 16.1 % (11.8-14.3); White Blood Cell 10.5 10^3/uL (4.4-10.8)
[2024-01-05 19:21] LABS: Chloride 112 mmol/L (98-107); Sodium 144 mmol/L (136-145)
[2024-01-05 19:22] LABS: Anion Gap 13 (5-15); Calcium 8.8 mg/dL (8.7-10.4); Carbon Dioxide 19 mmol/L (20-30)
[2024-01-05 19:27] LABS: BUN/Creatinine Ratio 17.5 (10.0-20.0); Blood Urea Nitrogen 7 mg/dL (9-23); Glucose 139 mg/dL (74-106)
[2024-01-05 19:28] LABS: Magnesium 1.9 mg/dL (1.6-2.6)
[2024-01-05 19:30] LABS: Phosphorus 1.8 mg/dL (2.4-5.1)
[2024-01-05 19:45] LABS: Potassium 2.5 mmol/L (3.5-5.1)
[2024-01-05] MEDS: POTASSIUM CHL 20 Meq TABLET PO ONE (23:14)
[2024-01-06] VITALS (10 sets, daily range): BP systolic 57–149; BP diastolic 63–90; PULSE 40–81; RESP 18–20; TEMP 97–98; O2SAT 94–96
[2024-01-06] MEDS: POTASSIUM CHLORIDE 40 MEQ in SOD CHL 0.45% 1,000 ML IV SCH (08:07)
[2024-01-06 10:08] LABS: Alanine Aminotransferase 15 U/L (7-40); Albumin 3.2 g/dL (3.2-4.8); Alkaline Phosphatase 66 U/L (46-116); Anion Gap 12 (5-15); Aspartate Aminotransferase 21 U/L (13-40); Calcium 8.5 mg/dL (8.7-10.4); Carbon Dioxide 22 mmol/L (20-30); Chloride 112 mmol/L (98-107); Glucose 107 mg/dL (74-106); Sodium 146 mmol/L (136-145)
[2024-01-06 10:09] LABS: Bilirubin, Total 0.5 mg/dL (0.2-1.0); Total Protein 5.4 g/dL (5.7-8.2)
[2024-01-06 10:12] LABS: BUN/Creatinine Ratio 13.5 (10.0-20.0); Blood Urea Nitrogen < 5 mg/dL (9-23)
[2024-01-06 10:16] LABS: Potassium 2.3 mmol/L (3.5-5.1)
[2024-01-06] MEDS: POTASSIUM CHLORIDE 60 MEQ, LIDOCAINE 1% (LOCAL ANESTH.) 6 ML in SODIUM CHL 0.9% 500 ML IV ONE (10:38)
[2024-01-06] MEDS: METOCLOPRAMIDE HCL 5MG/ml INJ 2ml VIAL IV SCH (13:58)
[2024-01-06 18:32] LABS: Potassium 2.6 mmol/L (3.5-5.1)
[2024-01-06 18:39] LABS: Magnesium 1.7 mg/dL (1.6-2.6)
[2024-01-07] VITALS (9 sets, daily range): BP systolic 129–163; BP diastolic 74–92; PULSE 66–86; RESP 16–18; TEMP 97.8–98.7; O2SAT 92–95
[2024-01-07 07:09] LABS: Anion Gap 8 (5-15); Carbon Dioxide 21 mmol/L (20-30); Chloride 113 mmol/L (98-107); Sodium 142 mmol/L (136-145)
[2024-01-07 07:10] LABS: Calcium 8.4 mg/dL (8.7-10.4)
[2024-01-07 07:15] LABS: Glucose 97 mg/dL (74-106)
[2024-01-07 07:16] LABS: Magnesium 1.7 mg/dL (1.6-2.6)
[2024-01-07 07:17] LABS: BUN/Creatinine Ratio 11.9 (10.0-20.0); Blood Urea Nitrogen < 5 mg/dL (9-23)
[2024-01-07 07:19] LABS: Potassium 2.5 mmol/L (3.5-5.1)
[2024-01-07] MEDS: POTASSIUM CHL 20MEQ/100ML 100 ML IV SCH ×2 (12:00→18:36)
[2024-01-07] MEDS: POTASSIUM EFFERVESENT TAB 25 MEQ PO SCH (13:40)
[2024-01-07] MEDS: MAGNESIUM OXIDE 400 MG TAB PO SCH (13:40)
[2024-01-07 17:31] LABS: Potassium 2.4 mmol/L (3.5-5.1)
[2024-01-07 17:36] LABS: Magnesium 1.6 mg/dL (1.6-2.6)
[2024-01-07] MEDS: POTASSIUM PHOSPHATE 26.4 MEQ in SODIUM CHL 0.9% 100 ML IV ONE (21:33)
[2024-01-08] VITALS (10 sets, daily range): BP systolic 136–153; BP diastolic 69–87; PULSE 72–86; RESP 16–19; TEMP 36.6; O2SAT 93–95
[2024-01-08 05:58] LABS: Chloride 113 mmol/L (98-107); Potassium 3.2 mmol/L (3.5-5.1); Sodium 140 mmol/L (136-145)
[2024-01-08 05:59] LABS: Anion Gap 6 (5-15); Carbon Dioxide 21 mmol/L (20-30)
[2024-01-08 06:00] LABS: Calcium 8.4 mg/dL (8.7-10.4)
[2024-01-08 06:04] LABS: Glucose 105 mg/dL (74-106)
[2024-01-08 06:05] LABS: Magnesium 1.6 mg/dL (1.6-2.6)
[2024-01-08 06:16] LABS: BUN/Creatinine Ratio 11.4 (10.0-20.0); Blood Urea Nitrogen < 5 mg/dL (9-23)
[2024-01-08] MEDS ORDERED: POTA-36 PO (11:04)
[2024-01-08] MEDS: POTASSIUM CHLORIDE 20 MEQ, LIDOCAINE 1% (LOCAL ANESTH.) 2 ML in SODIUM CHL 0.9% 100 ML IV ONE (11:07)
[2024-01-08] MEDS: POLYETHYLENE GLYCOL 17 GM PWDR PO ONE (11:07)
[2024-01-08 16:34] LABS: Potassium 2.8 mmol/L (3.5-5.1)
[2024-01-08 16:40] LABS: Magnesium 1.6 mg/dL (1.6-2.6)
[2024-01-08] MEDS: MAGNESIUM SULFATE 1GM/100ML 100 ML IV ONE (18:07)
[2024-01-08] MEDS: POTASSIUM EFFERVESENT TAB 25 MEQ PO ONE (18:08)
[2024-01-08] MEDS: POTASSIUM CHLORIDE 60 MEQ, LIDOCAINE 1% (LOCAL ANESTH.) 6 ML in SODIUM CHL 0.9% 500 ML IV ONE (18:08)
== END 2024-01-08 21:50 | disposition home or self-care (01) | DRG 247 ==
LOC: ER 12:51 → EDBD 12:51 → TELE-EAST 16:32 → TELE 16:32 → TELE-EAST 21:14
PROVIDERS: ADMIT Nurse Practitioner Acute Care; ATTEND Nurse Practitioner Acute Care
PROC: 0D9670Z Drainage of Stomach with Drainage Device, Via Natural or Artificial Opening (ICD-10-PCS; principal; 2023-12-31)
DX: K56.600 Partial intestinal obstruction, unspecified as to cause (principal); E83.39 Other disorders of phosphorus metabolism; E87.6 Hypokalemia; I69.354 Hemiplegia and hemiparesis following cerebral infarction affecting left non-dominant side; E11.9 Type 2 diabetes mellitus without complications; E78.5 Hyperlipidemia, unspecified; I10 Essential (primary) hypertension; E66.9 Obesity, unspecified; K59.00 Constipation, unspecified; K52.9 Noninfective gastroenteritis and colitis, unspecified; Z82.49 Family history of ischemic heart disease and other diseases of the circulatory system; Z82.0 Family history of epilepsy and other diseases of the nervous system; Z68.31 Body mass index [BMI] 31.0-31.9, adult; Z79.4 Long term (current) use of insulin
CPT/HCPCS: 36415; 71045; 74018; 74176; 74250; 80048; 80053; 82962; 83036; 83605; 83690; 83735; 84100; 84132; 84484; 85025; 87081; 96365; 96367; 97163; G0378; J1815; J1956; J2001; J2405; J2470; J3480; J3490